=== PATIENT | female | born 1960 | race Caucasian/White ===

== ENCOUNTER 2017-11-16 14:46 | Inpatient (IN) | payer BC ==
[2017-11-16 16:12] LABS: ABSOLUTE BASOPHILS # (AUTO) 0.1 10^3/uL (0.0-0.2); ABSOLUTE EOSINOPHILS # (AUTO) 0.2 10^3/uL (0.0-0.6); ABSOLUTE LYMPHOCYTES (AUTO) 2.5 10^3/uL (0.5-4.7); ABSOLUTE MONOCYTES (AUTO) 0.5 10^3/uL (0.1-1.4); ABSOLUTE NEUT (AUTO) 7.4 10^3/uL (1.7-8.2); BASOPHILS % (AUTO) 1.1 % (0-2); EOSINOPHILS % (AUTO) 1.5 % (0-6); HEMATOCRIT 40.6 % (36.0-47.0); HEMOGLOBIN 13.7 g/dL (12.0-15.5); INTERNATIONAL RATION (INR) 0.84; LYMPHOCYTES % (AUTO) 23.6 % (13-45); MEAN CORPUSCULAR HEMOGLOBIN 28.2 pg (27.0-33.4); MEAN CORPUSCULAR HGB CONC 33.7 g/dL (32.0-36.0); MEAN CORPUSCULAR VOLUME 84 fl (80-97); MONOCYTES % (AUTO) 4.8 % (3-13); PARTIAL THROMBOPLASTIN TIME 22.4 SEC (23.5-35.8); PLATELET COUNT 409 10^3/uL (150-450); PROTHROMBIN TIME 12.1 SEC (11.4-15.4); RED BLOOD COUNT 4.86 10^6/uL (3.72-5.28); RED CELL DISTRIBUTION WIDTH 13.7 % (11.5-14.0); TOTAL CELLS COUNTED % (AUTO) 100 %; WHITE BLOOD COUNT 10.8 10^3/uL (4.0-10.5)
[2017-11-16 16:31] LABS: ALANINE AMINOTRANSFERASE 27 U/L (9-52); ALBUMIN 4.1 g/dL (3.5-5.0); ALKALINE PHOSPHATASE 128 U/L (38-126); ANION GAP 8 (5-19); ASPARTATE AMINO TRANSFERASE 12 U/L (14-36); BILIRUBIN,DIRECT 0.4 mg/dL (0.0-0.4); BILIRUBIN,TOTAL 0.4 mg/dL (0.2-1.3); BLOOD UREA NITROGEN 15 mg/dL (7-20); CALCIUM 9.9 mg/dL (8.4-10.2); CARBON DIOXIDE 29 mmol/L (22-30); CHLORIDE 103 mmol/L (98-107); CREATINE KINASE 26 U/L (30-135); GLUCOSE 234 mg/dL (75-110); POTASSIUM 4.5 mmol/L (3.6-5.0); TOTAL PROTEIN 6.6 g/dL (6.3-8.2)
--- NOTE | 2017-11-16 16:36 | RADIOLOGY REPORT (SQ) ---
EXAM DESCRIPTION: CT HEAD WITHOUT COMPLETED DATE/TIME: 11/16/2017 4:17 pm REASON FOR STUDY: INPATIENT STROKE ALERT PROTOCOL/SUSPECTED STROKE COMPARISON: None. TECHNIQUE: Axial images acquired through the brain without intravenous contrast. Images reviewed wi th bone, brain and subdural windows. Images stored on PACS. All CT scanners at this facility use dose modulation, iterative reconstruction, and/or weight based d osing when appropriate to reduce radiation dose to as low as reasonably achievable (ALARA). [facility]: Dose Right [facility]: CareDose [facility]: Dose Right [facility]: Teradose 4D [facility]: Smart [email or web address] RADIATION DOSE: CT Rad equipment meets quality standard of care and radiation dose reduction techniq ues were employed. CTDIvol: 49.0 mGy. DLP: 783 mGy-cm. mGy. LIMITATIONS: None. FINDINGS: VENTRICLES: Normal size and contour. CEREBRUM: No masses. No hemorrhage. No midline shift. No evidence for acute infarction. Normal gra y/white matter differentiation. No areas of low density in the white matter. CEREBELLUM: No masses. No hemorrhage. No alteration of density. No evidence for acute infarction. EXTRAAXIAL SPACES: No fluid collections. No masses. ORBITS AND GLOBE: No intra- or extraconal masses. Normal contour of globe without masses. CALVARIUM: No fracture. PARANASAL SINUSES: No fluid or mucosal thickening. SOFT TISSUES: No mass or hematoma. OTHER: No other significant finding. IMPRESSION: NORMAL BRAIN CT WITHOUT CONTRAST. EVIDENCE OF ACUTE STROKE: NO. COMMENT: Quality ID # [id number]: Final reports with documentation of one or more dose reduction techniques (e.g., Automated exposure control, adjustment of the mA and/or kV according to patient size, use of iterative reconstruction technique) TECHNICAL DOCUMENTATION: JOB ID: [id number] [employer]- All Rights Reserved
[2017-11-16 16:44] LABS: CREATINE KINASE MB < 0.22 ng/mL (<4.55); TROPONIN I < 0.012 ng/mL
--- NOTE | 2017-11-16 16:59 | RADIOLOGY REPORT (SQ) ---
EXAM DESCRIPTION: CHEST SINGLE VIEW COMPLETED DATE/TIME: 11/16/2017 4:40 pm REASON FOR STUDY: INPATIENT STROKE ALERT PROTOCOL/SUSPECTED STROKE COMPARISON: None. EXAM PARAMETERS: NUMBER OF VIEWS: One view. TECHNIQUE: Single frontal radiographic view of the chest acquired. RADIATION DOSE: NA LIMITATIONS: Patient body habitus. FINDINGS: LUNGS AND PLEURA: No opacities, masses or pneumothorax. No pleural effusion. MEDIASTINUM AND HILAR STRUCTURES: No masses. Contour normal. HEART AND VASCULAR STRUCTURES: Heart normal in size. Normal vasculature. BONES: No acute findings. HARDWARE: None in the chest. OTHER: No other significant finding. IMPRESSION: NO ACUTE RADIOGRAPHIC FINDING IN THE CHEST. TECHNICAL DOCUMENTATION: JOB ID: [id number] [employer]- All Rights Reserved
[2017-11-16] MEDS ORDERED: LORAZEPAM INJ 2 MG/1 ML VIAL ONE (18:35)
--- NOTE | 2017-11-16 19:39 | RADIOLOGY REPORT (SQ) ---
EXAM DESCRIPTION: MRI HEAD WITHOUT COMPLETED DATE/TIME: 11/16/2017 7:17 pm REASON FOR STUDY: TIA COMPARISON: Correlation made to CT from 11/16/2017 TECHNIQUE: Multiplanar imaging includes non-contrasted T1, T2, FLAIR, and Diffusion with ADC map seq uences. Images stored on PACS. LIMITATIONS: None. FINDINGS: ANATOMY: No anomalies. Normal vascular flow voids. Pituitary fossa normal. CSF SPACES: Normal in size and contour. No hemorrhage. CEREBRUM: A few high-signal intensity lesions scattered throughout the white matter on FLAIR imaging with distribution suggesting chronic micro-vascular ischemic change. Small amount of gliosis involvi ng the left occipital lobe seen on series 9 images 13-15 presumably sequela to prior infarction or co ntusion. Sulci and gyri normal in size and contour. No evidence of hemorrhage, mass or extraaxial f luid collection. POSTERIOR FOSSA: No signal alteration. No hemorrhage. No edema, masses or mass effect. Internal najma tory canals, cerebello-pontine angles, mastoids normal. DIFFUSION: Negative for acute or sub-acute infarction. ORBITS: No masses. Globes normal. PARANASAL SINUSES: No fluid levels. Mucosa normal. OTHER: No other significant finding. IMPRESSION: MILD SENESCENT CHANGE ABOVE WITHOUT ACUTE ISCHEMIA, HEMORRHAGE, OR MASS IS LEAD. EVIDENCE OF ACUTE STROKE: NO. TECHNICAL DOCUMENTATION: JOB ID: [id number] [employer]- All Rights Reserved
[2017-11-16] MEDS: ASPIRIN/DIPYRIDAMOLE 25-200 MG 1 CAP.SR CPMP.12HR PO SCH (20:04)
[2017-11-16] MEDS ORDERED: DEXTROSE 50%-WATER SYRINGE 12.5 GM/25 ML DOSE IV PRN (20:32)
[2017-11-16] MEDS ORDERED: DEXTROSE 50%-WATER SYRINGE 25 GM/50 ML DOSE IV PRN (20:32)
[2017-11-16] MEDS ORDERED: GLUCAGON,HUMAN RECOMB 1 MG INJ IM PRN (20:32)
[2017-11-16] MEDS ORDERED: DEXTROSE 40% GEL 15 GM TUBE X 2 PO PRN (20:32)
[2017-11-16] MEDS ORDERED: DEXTROSE 40% GEL 15 GM TUBE PO PRN (20:32)
[2017-11-16] MEDS: ATORVASTATIN CALCIUM 40 MG TABLET PO SCH (21:14)
[2017-11-16] MEDS ORDERED: METOPROLOL TARTRATE 100 MG TABLET PO ONE (21:30)
[2017-11-16] MEDS ORDERED: LOSARTAN POTASSIUM 50 MG TABLET PO ONE (21:30)
[2017-11-16] MEDS ORDERED: FOLIC ACID 1 MG TABLET PO ONE (21:30)
[2017-11-16] MEDS: INSULIN LISPRO 100 UNIT/ML 3 ML VIAL SUBCUT PRN (22:48)
[2017-11-17] MEDS: TEMAZEPAM 15 MG CAPSULE PO PRN ×2 (00:01→21:44)
[2017-11-17 00:21] LABS: CREATINE KINASE MB < 0.22 ng/mL (<4.55); TROPONIN I < 0.012 ng/mL
[2017-11-17 01:44] LABS: APPEARANCE,URINE SLIGHTLY-CLOUDY; BILIRUBIN,URINE NEGATIVE (NEGATIVE); COLOR,URINE YELLOW; GLUCOSE, URINE >=500 mg/dL (NEGATIVE); KETONES,URINE NEGATIVE (NEGATIVE); LEUKOCYTE ESTERASE,URINE NEGATIVE (NEGATIVE); NITRITE,URINE NEGATIVE (NEGATIVE); PROTEIN,URINE NEGATIVE (NEGATIVE); URINE SPECIFIC GRAVITY 1.035
[2017-11-17] MEDS: ASPIRIN/DIPYRIDAMOLE 25-200 MG 1 CAP.SR CPMP.12HR PO SCH ×2 (05:14→19:52)
[2017-11-17] MEDS: METFORMIN HCL 500 MG TABLET PO SCH ×2 (08:57→17:26)
[2017-11-17] MEDS: ONDANSETRON HCL INJ/PF 4 MG/2 ML SDV IV PRN ×2 (08:58→21:51)
--- NOTE | 2017-11-17 09:26 | EKG REPORT ---
SEVERITY:- ABNORMAL ECG - SINUS RHYTHM ABNRM R PROG, CONSIDER ASMI OR LEAD PLACEMENT BORDERLINE T WAVE ABNORMALITIES : Confirmed by: Angle Mares 17-Nov-2017 09:26:36
[2017-11-17 10:20] LABS: CREATINE KINASE MB < 0.22 ng/mL (<4.55); TROPONIN I < 0.012 ng/mL
[2017-11-17] MEDS: FOLIC ACID 1 MG TABLET PO SCH (11:11)
[2017-11-17] MEDS: LOSARTAN POTASSIUM 50 MG TABLET PO SCH (11:11)
[2017-11-17] MEDS: GLIMEPIRIDE 1 MG TABLET PO SCH (11:12)
[2017-11-17] MEDS: METOPROLOL TARTRATE 100 MG TABLET PO SCH (11:12)
[2017-11-17] MEDS: INSULIN LISPRO 100 UNIT/ML 3 ML VIAL SUBCUT PRN (14:24)
[2017-11-17] MEDS ORDERED: LORAZEPAM INJ 2 MG/1 ML VIAL IV ONE (16:04)
--- NOTE | 2017-11-17 19:47 | RADIOLOGY REPORT (SQ) ---
EXAM DESCRIPTION: MRI HEAD COMBO COMPLETED DATE/TIME: 11/17/2017 7:22 pm REASON FOR STUDY: rt side hemiplegia with slurred speech ? mass COMPARISON: 11/16/2017 TECHNIQUE: Multiplanar imaging includes noncontrasted T1, T2, FLAIR, diffusion with ADC map and post gadolinium contrast T1 sequences. Heme sensitive sequence. Images stored on PACS. CONTRAST TYPE AND DOSE: 20 mL Multihance. RENAL FUNCTION: GFR > 60. LIMITATIONS: Marked motion. FINDINGS: ANATOMY: No anomalies. Normal vascular flow voids. Pituitary fossa normal. CSF SPACES: Normal in size and contour. No hemorrhage. CEREBRUM: Sulci and gyri normal in size and contour. Normal white matter signal on FLAIR imaging. No evidence of hemorrhage, mass, or extraaxial fluid collection. No abnormal enhancement post contrast. POSTERIOR FOSSA: No signal alteration. No hemorrhage. No edema, masses, or mass effect. Internal najma tory canals, cerebellopontine angles, mastoids normal. No enhancing lesions. No abnormal enhancement post contrast. DIFFUSION IMAGING: Negative for acute or subacute infarction. ORBITS: No masses. Globes normal. PARANASAL SINUSES: No fluid levels. Mucosa normal. OTHER: No other significant finding. IMPRESSION: NORMAL MRI OF THE BRAIN WITHOUT AND WITH INTRAVENOUS GADOLINIUM CONTRAST. EVIDENCE OF ACUTE STROKE: NO. TECHNICAL DOCUMENTATION: JOB ID: [id number] [employer]- All Rights Reserved
--- NOTE | 2017-11-17 20:35 | PDOC H&P ---
History of Present Illness Admission Date/PCP: 11/16/17 14:46 TAINA HICKS MD History of Present Illness: RAMAN REID is a 57 year old female, She has history of type 2 diabetes mellitus, morbid obesity, hypertension, she came to the office very hysterical for evaluation of a new onset numbness, weakness of the right side of her body associated with slurred speech. This symptom slice syndrome was suspicious for acute CVA but the timeline of the onset of symptoms was more than 6 hours which precludes the use of TPA as an option of treatment for this patient. She was admitted from the office into the hospital for further evaluation. Initially CT head was done it was negative for any acute pathology subsequently MRI of the brain was done it was negative for an acute pathology. Patient was brought in for observation she was diagnosed as having transit ischemic attack and she was started on anti-stroke regimen. When I saw her this afternoon her speech was still slurred, MRI with contrast was then ordered and it came back as normal MRI suggesting no stroke or any intracranial pathology there is no space occupying lesion the could mimic CVA Past Medical History Cardiac Medical History: Reports: Hypertension Endocrine Medical History: Reports: Diabetes Mellitus Type 2 Social History Smoking Status: Never Smoker Frequency of Alcohol Use: Occasional Hx Recreational Drug Use: No Drugs: None Hx Prescription Drug Abuse: No Family History Family History: Reviewed & Not Pertinent Parental Family History Reviewed: Yes Children Family History Reviewed: Yes Sibling(s) Family History Reviewed.: Yes Medication/Allergy Home Medications: Aspirin [Aspirin 81 mg Chewable Tablet] 81 mg PO DAILY 11/16/17 Folic Acid [Folvite 1 mg Tablet] 1 mg PO DAILY 11/16/17 Glimepiride [Amaryl] 2 mg PO DAILY 11/16/17 Metformin HCl [Glucophage] 1,000 mg PO BID 11/16/17 Metoprolol Tartrate [Lopressor 100 mg Tablet] 100 mg PO DAILY 11/16/17 Allergies/Adverse Reactions: acetaminophen [From Percocet] Allergy (Verified 05/25/15 21:07) oxycodone HCl [From Percocet] Allergy (Verified 05/25/15 21:07) Penicillins Allergy (Verified 11/16/17 20:18) Review of Systems Constitutional: ABSENT: chills, fever(s), headache(s), weight gain, weight loss Eyes: ABSENT: visual disturbances Ears: ABSENT: hearing changes Cardiovascular: ABSENT: chest pain, dyspnea on exertion, edema, orthropnea, palpitations Respiratory: ABSENT: cough, hemoptysis Gastrointestinal: ABSENT: abdominal pain, constipation, diarrhea, hematemesis, hematochezia, nausea, vomiting Genitourinary: ABSENT: dysuria, hematuria Musculoskeletal: ABSENT: joint swelling Integumentary: ABSENT: rash, wounds Neurological: PRESENT: numbness, paresthesias Psychiatric: ABSENT: anxiety, depression, homidical ideation, suicidal ideation Endocrine: ABSENT: cold intolerance, heat intolerance, menstrual abnormalities, polydipsia, polyuria Hematologic/Lymphatic: ABSENT: easy bleeding, easy bruising, lymphadenopathy Physical Exam Vital Signs: Temp Pulse Resp BP Pulse Ox 98.5 F 75 16 172/84 H 96 11/17/17 19:48 11/17/17 19:48 11/17/17 19:48 11/17/17 19:48 11/17/17 19:48 Intake & Output 11/16/17 11/17/17 11/18/17 06:59 06:59 06:59 Intake Total 247 405 Output Total 0 Balance 247 405 Weight 110.5 kg General appearance: PRESENT: no acute distress, well-developed, well-nourished Head exam: PRESENT: atraumatic, normocephalic Eye exam: PRESENT: conjunctiva pink, EOMI, PERRLA Ear exam: PRESENT: normal external ear exam Mouth exam: PRESENT: moist, tongue midline Neck exam: PRESENT: full ROM Respiratory exam: PRESENT: clear to auscultation cortney Cardiovascular exam: PRESENT: RRR, +S1, +S2 Pulses: PRESENT: normal dorsalis pedis pul, +2 pedal pulses bilateral GI/Abdominal exam: PRESENT: normal bowel sounds, soft Rectal exam: PRESENT: deferred Neurological exam: PRESENT: alert, CN II-XII grossly intact Psychiatric exam: PRESENT: appropriate affect, normal mood Skin exam: PRESENT: dry, intact, warm Results Laboratory Results: 11/16/17 15:58 11/16/17 15:58 11/17/17 00:50 Urine Color YELLOW Urine Appearance SLIGHTLY-CLOUDY Urine pH 6.0 Ur Specific [place] 1.035 Urine Protein NEGATIVE Urine Glucose (UA) >=500 H Urine Ketones NEGATIVE Urine Blood SMALL H Urine Nitrite NEGATIVE Ur Leukocyte Esterase NEGATIVE Urine RBC (Auto) 5 11/16/17 11/16/17 11/16/17 15:58 15:58 23:46 Creatine Kinase 26 L 28 L CK-MB (CK-2) < 0.22 Troponin I < 0.012 11/16/17 11/17/17 11/17/17 23:46 09:09 09:09 Creatine Kinase 21 L CK-MB (CK-2) < 0.22 < 0.22 Troponin I < 0.012 < 0.012 Impressions: Chest X-Ray 11/16/17 00:00 IMPRESSION: NO ACUTE RADIOGRAPHIC FINDING IN THE CHEST. Head CT 11/16/17 15:41 IMPRESSION: NORMAL BRAIN CT WITHOUT CONTRAST. EVIDENCE OF ACUTE STROKE: NO. Head MRI 11/17/17 00:00 IMPRESSION: NORMAL MRI OF THE BRAIN WITHOUT AND WITH INTRAVENOUS GADOLINIUM CONTRAST. EVIDENCE OF ACUTE STROKE: NO. Assessment & Plan - Diagnosis (1) Transient ischemic attack Qualifiers: Transient cerebral ischemia type: carotid artery syndrome (hemispheric) Qualified Code(s): G45.1 - Carotid artery syndrome (hemispheric) Is this a current diagnosis for this admission?: Yes Plan: This symptom is consistent with TIA, these symptoms seems to resolve in 24 hours (2) Type 2 diabetes mellitus Qualifiers: Diabetes mellitus complication status: with neurologic complications Diabetes mellitus complication detail: with polyneuropathy Diabetes mellitus fdc insulin use: without termite control technician use Qualified Code(s): E11.42 - Type 2 diabetes mellitus with diabetic polyneuropathy Is this a current diagnosis for this admission?: Yes
[2017-11-17 21:25] LABS: URINE BARBITURATES SCREEN NEGATIVE; URINE BENZODIAZEPINES SCREEN NEGATIVE; URINE COCAINE SCREEN NEGATIVE; URINE MARIJUANA (THC) SCREEN NEGATIVE; URINE METHADONE SCREEN NEGATIVE; URINE PHENCYCLIDINE SCREEN NEGATIVE
[2017-11-17] MEDS: ATORVASTATIN CALCIUM 40 MG TABLET PO SCH (21:43)
[2017-11-17 21:53] LABS: URINE AMPHETAMINES SCREEN NEGATIVE
[2017-11-17] MEDS ORDERED: ENOXAPARIN SODIUM INJ 40 MG/0.4 ML DISP.SYRIN SUBCUT ONE (22:00)
[2017-11-18] MEDS: NAPROXEN 250 MG TABLET PO PRN ×3 (02:28→23:05)
[2017-11-18] MEDS: ASPIRIN/DIPYRIDAMOLE 25-200 MG 1 CAP.SR CPMP.12HR PO SCH ×2 (06:48→18:26)
[2017-11-18] MEDS: ONDANSETRON HCL INJ/PF 4 MG/2 ML SDV IV PRN ×4 (06:52→22:19)
[2017-11-18] MEDS: INSULIN LISPRO 100 UNIT/ML 3 ML VIAL SUBCUT PRN ×3 (11:09→22:13)
[2017-11-18] MEDS: ENOXAPARIN SODIUM INJ 40 MG/0.4 ML DISP.SYRIN SUBCUT SCH (11:11)
[2017-11-18] MEDS: LOSARTAN POTASSIUM 50 MG TABLET PO SCH (11:12)
[2017-11-18] MEDS: GLIMEPIRIDE 1 MG TABLET PO SCH (11:12)
[2017-11-18] MEDS: METOPROLOL TARTRATE 100 MG TABLET PO SCH (11:12)
[2017-11-18] MEDS: FOLIC ACID 1 MG TABLET PO SCH (11:13)
--- NOTE | 2017-11-18 17:53 | PDOC PROGRESS REPORT ---
Subjective Progress Note for:: 11/18/17 Subjective:: Patient continues to manifest symptoms of slow speech, right-sided weakness, despite negative MRI brain with and without contrast. She also complained of a headache, this raises the question of possible seizure, possible hemiplegic migrainous headache. EEG will be ordered Reason For Visit: TIA Physical Exam Vital Signs: Temp Pulse Resp BP Pulse Ox 98.3 F 100 18 147/62 H 96 11/18/17 08:27 11/18/17 12:00 11/18/17 12:00 11/18/17 12:00 11/18/17 12:00 Intake & Output 11/17/17 11/18/17 11/19/17 06:59 06:59 06:59 Intake Total 247 672 Output Total 0 Balance 247 672 Weight 110.5 kg 107.3 kg General appearance: PRESENT: no acute distress Eye exam: PRESENT: PERRLA Respiratory exam: PRESENT: clear to auscultation cortney Cardiovascular exam: PRESENT: +S1, +S2 Neurological exam: PRESENT: alert, motor sensory deficit Results Laboratory Results: 11/16/17 15:58 11/16/17 15:58 11/16/17 11/16/17 11/16/17 15:58 15:58 23:46 Creatine Kinase 26 L 28 L CK-MB (CK-2) < 0.22 Troponin I < 0.012 11/16/17 11/17/17 11/17/17 23:46 09:09 09:09 Creatine Kinase 21 L CK-MB (CK-2) < 0.22 < 0.22 Troponin I < 0.012 < 0.012 Impressions: Chest X-Ray 11/16/17 00:00 IMPRESSION: NO ACUTE RADIOGRAPHIC FINDING IN THE CHEST. Head CT 11/16/17 15:41 IMPRESSION: NORMAL BRAIN CT WITHOUT CONTRAST. EVIDENCE OF ACUTE STROKE: NO. Head MRI 11/17/17 00:00 IMPRESSION: NORMAL MRI OF THE BRAIN WITHOUT AND WITH INTRAVENOUS GADOLINIUM CONTRAST. EVIDENCE OF ACUTE STROKE: NO. Assessment & Plan - Diagnosis (1) Transient ischemic attack Qualifiers: Transient cerebral ischemia type: carotid artery syndrome (hemispheric) Qualified Code(s): G45.1 - Carotid artery syndrome (hemispheric) Is this a current diagnosis for this admission?: Yes (2) Type 2 diabetes mellitus Qualifiers: Diabetes mellitus complication status: with neurologic complications Diabetes mellitus complication detail: with polyneuropathy Diabetes mellitus intermediate card tender insulin use: without intermediate card tender use Qualified Code(s): E11.42 - Type 2 diabetes mellitus with diabetic polyneuropathy Is this a current diagnosis for this admission?: Yes (3) Hemiparesis Is this a current diagnosis for this admission?: Yes Plan: Differential diagnosis includes migrainous headache, seizure disorder
--- NOTE | 2017-11-18 18:17 | XCELERA REPORT ---
[address] [address] Transthoracic Echocardiogram Report Name: RAMAN REID Age: 57 yrs Gender: Female : 1960 Patient Status: Inpatient Patient Location: [address] [place] [address] Study Date: 11/18/2017 01:53 PM Height: 61 in Weight: 243 lb BSA: 2.1 m2 Procedure: A complete two-dimensional transthoracic echocardiogram was performed (2D, M-mode, spectral and color flow Doppler). The study was technically difficult with many images being suboptimal in quality. Reason For Study: tia Ordering Physician: TAINA HICKS Performed By: Sahara Watson Interpretation Summary The left ventricular ejection fraction is normal. There is borderline concentric left ventricular hypertrophy. Doppler measurements suggest pseudonormalized left ventricular relaxation, which is associated with grade II/IV or mild to moderate diastolic dysfunction The left ventricle is grossly normal size. Wall motion cannot be accurately commented on, but no definite regional wall motion abnormalities noted. The right ventricular systolic function is normal. The left atrial size is normal. The right atrium is normal in size There is a trace amount of mitral regurgitation There is no mitral valve stenosis. No aortic regurgitation is present. There is no aortic valve stenosis There is a trace or physiologic amount of tricuspid regurgitation Tricuspid regurgitation jet envelope not well defined to measure RV systolic pressure accurately. The aortic root is not well visualized but is probably normal size. The inferior vena cava was not well visualized There is no pericardial effusion. MMode/2D Measurements & Calculations RVDd: 2.6 cm LVIDd: 3.6 cm FS: 36.0 % Ao root diam: 2.9 cm IVSd: 0.99 cm LVIDs: 2.3 cm EDV(Teich): 55.5 ml LVPWd: 0.90 cm ESV(Teich): 18.6 ml Ao root area: 6.6 cm2 EF(Teich): 66.5 % LA dimension: 2.8 cm Doppler Measurements & Calculations MV E max madelin: MV P1/2t max madelin: Ao V2 max: LV V1 max P.4 cm/sec 121.9 cm/sec 116.3 cm/sec 4.5 mmHg MV A max madelin: MV P1/2t: 51.6 msec Ao max PG: LV V1 max: 101.2 cm/sec 5.4 mmHg 105.6 cm/sec MV E/A: 1.2 MVA(P1/2t): 4.3 cm2 MV dec slope: 692.3 cm/sec2 MV dec time: 0.15 sec PA V2 max: TR max madelin: 69.1 cm/sec 228.0 cm/sec PA max PG: TR max P.8 mmHg 1.9 mmHg Left Ventricle The left ventricle is grossly normal size. There is borderline concentric left ventricular hypertrophy. The left ventricular ejection fraction is normal. Doppler measurements suggest pseudonormalized left ventricular relaxation, which is associated with grade II/IV or mild to moderate diastolic dysfunction. Wall motion cannot be accurately commented on, but no definite regional wall motion abnormalities noted. Right Ventricle The right ventricle is mildly dilated. There is normal right ventricular wall thickness. The right ventricular systolic function is normal. Atria The right atrium is normal in size. The left atrial size is normal. Interarterial septum not well visualized and not well dopplered. Cannot comment on ASD/PFO presence. Mitral Valve The mitral valve is grossly normal. There is no mitral valve stenosis. There is a trace amount of mitral regurgitation. Aortic Valve The aortic valve is grossly normal. There is no aortic valve stenosis. No aortic regurgitation is present. Tricuspid Valve The tricuspid valve is not well visualized, but is grossly normal. There is no tricuspid stenosis. There is a trace or physiologic amount of tricuspid regurgitation. Tricuspid regurgitation jet envelope not well defined to measure RV systolic pressure accurately. Pulmonic Valve The pulmonic valve is not well visualized. Great Vessels The aortic root is not well visualized but is probably normal size. The inferior vena cava was not well visualized. Effusions There is no pericardial effusion. : TAINA HICKS > Angle Mares
[2017-11-18] MEDS: ATORVASTATIN CALCIUM 40 MG TABLET PO SCH (22:13)
[2017-11-18] MEDS: TEMAZEPAM 15 MG CAPSULE PO PRN (22:13)
[2017-11-19] MEDS: ASPIRIN/DIPYRIDAMOLE 25-200 MG 1 CAP.SR CPMP.12HR PO SCH ×2 (05:23→19:03)
[2017-11-19] MEDS: ONDANSETRON HCL INJ/PF 4 MG/2 ML SDV IV PRN ×2 (05:57→11:23)
[2017-11-19] MEDS: INSULIN LISPRO 100 UNIT/ML 3 ML VIAL SUBCUT PRN ×2 (10:49→19:03)
[2017-11-19] MEDS: LOSARTAN POTASSIUM 50 MG TABLET PO SCH (10:49)
[2017-11-19] MEDS: METOPROLOL TARTRATE 100 MG TABLET PO SCH (10:50)
[2017-11-19] MEDS: FOLIC ACID 1 MG TABLET PO SCH (10:51)
[2017-11-19] MEDS: GLIMEPIRIDE 1 MG TABLET PO SCH (10:51)
[2017-11-19] MEDS: ENOXAPARIN SODIUM INJ 40 MG/0.4 ML DISP.SYRIN SUBCUT SCH (10:51)
[2017-11-19] MEDS: NAPROXEN 250 MG TABLET PO PRN (14:53)
[2017-11-19] MEDS: METFORMIN HCL 500 MG TABLET PO SCH (15:46)
--- NOTE | 2017-11-19 16:57 | RADIOLOGY REPORT (SQ) ---
EXAM DESCRIPTION: CAROTID DOPPLER COMPLETED DATE/TIME: 11/19/2017 4:43 pm REASON FOR STUDY: tia COMPARISON: None. TECHNIQUE: Grayscale ultrasound, Doppler velocity and spectra, and color Doppler images acquired of the extra-cranial carotid and vertebral arteries. Images stored on PACS. LIMITATIONS: None. FINDINGS: RIGHT CAROTID CCA Velocities: Within normal limits. ICA Velocities Peak systolic 1.23 m/s. End diastolic 0.43 m/s. Proximal ICA/CCA peak systolic ratio 1.1. Spectra normal. No significant plaque. LEFT CAROTID CCA Velocities: Within normal limits. ICA Velocities Peak systolic 1.22 m/s. End diastolic 0.40 m/s. Proximal ICA/CCA peak systolic ratio 1.6. Spectra normal. No significant plaque. VERTEBRAL ARTERIES: Antegrade flow. Normal waveforms. SUBCLAVIAN ARTERIES: No finding. OTHER: No other significant finding. IMPRESSION: No hemodynamically significant stenoses are identified. COMMENT: Quality ID #[id number]: Velocity criteria are extrapolated from the diameter data as defined by t he Society of Radiologists in Ultrasound Consensus Conference. Radiology 2003: 229; 340-346. TECHNICAL DOCUMENTATION: JOB ID: [id number] [employer]- All Rights Reserved
[2017-11-19] MEDS ORDERED: LORAZEPAM INJ 2 MG/1 ML VIAL ONE (19:27)
--- NOTE | 2017-11-19 21:04 | RADIOLOGY REPORT (SQ) ---
EXAM DESCRIPTION: MRI CERVICAL SPINE WITHOUT COMPLETED DATE/TIME: 11/19/2017 8:38 pm REASON FOR STUDY: cervical radiculopathy COMPARISON: None. TECHNIQUE: Sagittal and Axial imaging includes T1, T2, STIR and gradient echo sequences. LIMITATIONS: None. FINDINGS: ALIGNMENT: Normal. VERTEBRAE: Intact. BONE MARROW: Normal. No marrow replacement or reactive changes. DISCS: Normal. No significant abnormal signal or loss of height. HARDWARE: None in the spine. CORD AND BASE OF BRAIN: Normal in size and signal intensity. SOFT TISSUES: No soft tissue masses. C1-C2: No significant spinal stenosis. C2-C3: No significant spinal stenosis or exit foraminal stenosis. C3-C4: No significant spinal stenosis or exit foraminal stenosis. C4-C5: No significant spinal stenosis or exit foraminal stenosis. C5-C6: No significant spinal stenosis or exit foraminal stenosis. C6-C7: No significant spinal stenosis or exit foraminal stenosis. C7-T1: No significant spinal stenosis or exit foraminal stenosis. UPPER THORACIC: Incompletely imaged. No significant spinal stenosis or exit foraminal stenosis. OTHER: No other significant finding. IMPRESSION: Age-appropriate exam. No significant stenosis or disc disease. TECHNICAL DOCUMENTATION: JOB ID: [id number] [place]-72 2010 [employer]- All Rights Reserved
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
[2017-11-19] MEDS: TEMAZEPAM 15 MG CAPSULE PO PRN (22:00)
[2017-11-19] MEDS: ATORVASTATIN CALCIUM 40 MG TABLET PO SCH (22:00)
[2017-11-20] MEDS: INSULIN LISPRO 100 UNIT/ML 3 ML VIAL SUBCUT PRN ×2 (04:19→13:12)
[2017-11-20] MEDS: NAPROXEN 250 MG TABLET PO PRN ×3 (04:22→22:48)
[2017-11-20] MEDS: ASPIRIN/DIPYRIDAMOLE 25-200 MG 1 CAP.SR CPMP.12HR PO SCH ×2 (06:23→17:34)
--- NOTE | 2017-11-20 09:02 | EEG PRO FEE REPORT ---
EEG INTERPRETATION PATIENT NAME: RAMAN REID ROOM#: [id number] ORDER#: [id number] DATE OF STUDY: 11/19/2017 : 1960 REFERRING MD: TAINA HICKS M.D. DIAGNOSIS: Seizures REPORT This a 57 year old female referred for EEG who has a lot of pain constant leg movement. The EEG does show a lot of movement artifact but no definite seizure activity is identified during the video portions of that were reviewed. The background is a regular 8-10 Hz low to medium voltage alpha throughout with no focal slowing, amplitude asymmetry or epileptiform discharges. FINAL IMPRESSION: Normal EEG INTERPRETING PHYSICIAN: LEENA LING M.D. /: MTEFFT TT: 0855 ID: [id number] /: [id number] TD: 1542 JOB: [id number] cc:Von BRYANT M.D. >
[2017-11-20] MEDS: GLIMEPIRIDE 1 MG TABLET PO SCH (11:27)
[2017-11-20] MEDS: METOPROLOL TARTRATE 100 MG TABLET PO SCH (11:29)
[2017-11-20] MEDS: FOLIC ACID 1 MG TABLET PO SCH (11:29)
[2017-11-20] MEDS: LOSARTAN POTASSIUM 50 MG TABLET PO SCH (11:30)
[2017-11-20 11:36] LABS: ABSOLUTE EOSINOPHILS # (AUTO) 0.1 10^3/uL (0.0-0.6); ABSOLUTE MONOCYTES (AUTO) 0.4 10^3/uL (0.1-1.4); ABSOLUTE NEUT (AUTO) 6.6 10^3/uL (1.7-8.2); BASOPHILS % (AUTO) 0.5 % (0-2); EOSINOPHILS % (AUTO) 0.7 % (0-6); HEMATOCRIT 40.3 % (36.0-47.0); HEMOGLOBIN 13.5 g/dL (12.0-15.5); LYMPHOCYTES % (AUTO) 12.7 % (13-45); MEAN CORPUSCULAR HGB CONC 33.5 g/dL (32.0-36.0); MEAN CORPUSCULAR VOLUME 84 fl (80-97); MONOCYTES % (AUTO) 4.9 % (3-13); PLATELET COUNT 302 10^3/uL (150-450); RED BLOOD COUNT 4.82 10^6/uL (3.72-5.28); RED CELL DISTRIBUTION WIDTH 13.8 % (11.5-14.0); SEGMENTED NEUTROPHILS % (AUTO) 81.2 % (42-78); TOTAL CELLS COUNTED % (AUTO) 100 %; WHITE BLOOD COUNT 8.2 10^3/uL (4.0-10.5)
[2017-11-20] MEDS: METFORMIN HCL 500 MG TABLET PO SCH ×2 (11:38→16:49)
[2017-11-20] MEDS: ONDANSETRON HCL INJ/PF 4 MG/2 ML SDV IV PRN ×2 (11:44→16:48)
[2017-11-20 11:51] LABS: ANION GAP 15 (5-19); BLOOD UREA NITROGEN 21 mg/dL (7-20); CALCIUM 9.9 mg/dL (8.4-10.2); CARBON DIOXIDE 23 mmol/L (22-30); CHLORIDE 105 mmol/L (98-107); GLUCOSE 319 mg/dL (75-110); POTASSIUM 4.3 mmol/L (3.6-5.0); SODIUM 142.6 mmol/L (137-145)
[2017-11-20] MEDS: ENOXAPARIN SODIUM INJ 40 MG/0.4 ML DISP.SYRIN SUBCUT SCH (12:53)
--- NOTE | 2017-11-20 20:34 | PDOC PROGRESS REPORT ---
Subjective Progress Note for:: 11/20/17 Subjective:: She was seen by the bedside, she has clinical stroke with right-sided weakness but there is no objective structural CVA from the MRI. I called and I spoke to the neurologist at [facility] with the intent to transfer patient to the facility, the neurologist is of opinion That it is not uncommon to have an acute stroke with a negative MRI findings and that they would not be doing anything differently from what is being offered to the patient presently, he recommended that patient should undergo rehabilitation and physical therapy Reason For Visit: TIA,CVA Physical Exam Vital Signs: Temp Pulse Resp BP Pulse Ox 97.3 F 78 16 147/62 H 97 11/20/17 15:25 11/20/17 15:25 11/20/17 15:25 11/20/17 15:25 11/20/17 15:25 Intake & Output 11/19/17 11/20/17 11/21/17 06:59 06:59 06:59 Intake Total 607 507 200 Balance 607 507 200 Weight 107.3 kg 106.7 kg General appearance: PRESENT: no acute distress Head exam: PRESENT: atraumatic, normocephalic Eye exam: ABSENT: scleral icterus Neck exam: PRESENT: full ROM Respiratory exam: PRESENT: clear to auscultation cortney Cardiovascular exam: PRESENT: RRR, +S1, +S2 Vascular exam: PRESENT: normal capillary refill GI/Abdominal exam: PRESENT: normal bowel sounds, soft Rectal exam: PRESENT: deferred Neurological exam: PRESENT: alert, motor sensory deficit - Right sided hemiparesis Psychiatric exam: PRESENT: appropriate affect, normal mood Skin exam: PRESENT: dry, intact, warm Results Laboratory Results: 11/20/17 11:07 11/20/17 11:07 11/20/17 11/20/17 11:07 11:07 WBC 8.2 RBC 4.82 Hgb 13.5 Hct 40.3 MCV 84 MCH 28.0 MCHC 33.5 RDW 13.8 Plt Count 302 Seg Neutrophils % 81.2 H Lymphocytes % 12.7 L Monocytes % 4.9 Eosinophils % 0.7 Basophils % 0.5 Absolute Neutrophils 6.6 Absolute Lymphocytes 1.0 Absolute Monocytes 0.4 Absolute Eosinophils 0.1 Absolute Basophils 0.0 Sodium 142.6 Potassium 4.3 Chloride 105 Carbon Dioxide 23 Anion Gap 15 BUN 21 H Creatinine 0.52 Est GFR ( Amer) > 60 Est GFR (Non-Af Amer) > 60 Glucose 319 H Calcium 9.9 11/16/17 11/16/17 11/16/17 15:58 15:58 23:46 Creatine Kinase 26 L 28 L CK-MB (CK-2) < 0.22 Troponin I < 0.012 11/16/17 11/17/17 11/17/17 23:46 09:09 09:09 Creatine Kinase 21 L CK-MB (CK-2) < 0.22 < 0.22 Troponin I < 0.012 < 0.012 Impressions: Chest X-Ray 11/16/17 00:00 IMPRESSION: NO ACUTE RADIOGRAPHIC FINDING IN THE CHEST. Head CT 11/16/17 15:41 IMPRESSION: NORMAL BRAIN CT WITHOUT CONTRAST. EVIDENCE OF ACUTE STROKE: NO. Head MRI 11/17/17 00:00 IMPRESSION: NORMAL MRI OF THE BRAIN WITHOUT AND WITH INTRAVENOUS GADOLINIUM CONTRAST. EVIDENCE OF ACUTE STROKE: NO. Carotid Doppler Study 11/19/17 00:00 IMPRESSION: No hemodynamically significant stenoses are identified. Cervical Spine MRI 11/19/17 00:00 IMPRESSION: Age-appropriate exam. No significant stenosis or disc disease. Assessment & Plan - Diagnosis (1) Type 2 diabetes mellitus Qualifiers: Diabetes mellitus complication status: with neurologic complications Diabetes mellitus complication detail: with polyneuropathy Diabetes mellitus roasterman insulin use: without roasterman use Qualified Code(s): E11.42 - Type 2 diabetes mellitus with diabetic polyneuropathy Is this a current diagnosis for this admission?: Yes (2) Hemiparesis Qualifiers: Hemiparesis etiology: unspecified Hemiparesis laterality: right dominant side Qualified Code(s): G81.91 - Hemiplegia, unspecified affecting right dominant side Is this a current diagnosis for this admission?: Yes (3) Cerebrovascular accident Qualifiers: CVA mechanism: unspecified Qualified Code(s): I63.9 - Cerebral infarction, unspecified Is this a current diagnosis for this admission?: Yes Plan: She has clinical stroke continue management to be transcribed to [facility]
[2017-11-20] MEDS: TEMAZEPAM 15 MG CAPSULE PO PRN (21:02)
[2017-11-20] MEDS: ATORVASTATIN CALCIUM 40 MG TABLET PO SCH (21:02)
[2017-11-21] MEDS: ASPIRIN/DIPYRIDAMOLE 25-200 MG 1 CAP.SR CPMP.12HR PO SCH ×2 (06:44→18:14)
[2017-11-21] MEDS: ONDANSETRON HCL INJ/PF 4 MG/2 ML SDV IV PRN ×4 (07:23→22:36)
[2017-11-21] MEDS: METFORMIN HCL 500 MG TABLET PO SCH ×2 (08:18→16:08)
[2017-11-21] MEDS: INSULIN LISPRO 100 UNIT/ML 3 ML VIAL SUBCUT PRN ×4 (08:18→22:36)
[2017-11-21] MEDS: FOLIC ACID 1 MG TABLET PO SCH (11:08)
[2017-11-21] MEDS: GLIMEPIRIDE 1 MG TABLET PO SCH (11:08)
[2017-11-21] MEDS: METOPROLOL TARTRATE 100 MG TABLET PO SCH (11:08)
[2017-11-21] MEDS: LOSARTAN POTASSIUM 50 MG TABLET PO SCH (11:08)
[2017-11-21] MEDS: ENOXAPARIN SODIUM INJ 40 MG/0.4 ML DISP.SYRIN SUBCUT SCH (11:08)
[2017-11-21] MEDS: NAPROXEN 250 MG TABLET PO PRN (11:38)
--- NOTE | 2017-11-21 15:26 | PDOC PROGRESS REPORT ---
Subjective Progress Note for:: 11/21/17 Subjective:: Patient reported some improvement in her speech but right sided weakness persist. Requesting for cough medication and pain medication is ineffective. She reported multiple joints aches and pain. No chest pain, difficulty with breathing, fever or chills. No nausea or vomiting. No headache or dizziness. Reason For Visit: TIA,CVA Physical Exam Vital Signs: Temp Pulse Resp BP Pulse Ox 98.1 F 79 15 148/69 H 99 11/21/17 11:55 11/21/17 11:55 11/21/17 11:55 11/21/17 11:55 11/21/17 11:55 Intake & Output 11/20/17 11/21/17 11/22/17 06:59 06:59 06:59 Intake Total 507 387 150 Balance 507 387 150 Weight 106.7 kg 107.6 kg General appearance: PRESENT: no acute distress, morbidly obese Head exam: PRESENT: atraumatic, normocephalic Eye exam: PRESENT: conjunctiva pink, EOMI, PERRLA. ABSENT: scleral icterus Mouth exam: PRESENT: moist Respiratory exam: PRESENT: clear to auscultation cortney Cardiovascular exam: PRESENT: RRR. ABSENT: diastolic murmur, rubs, systolic murmur GI/Abdominal exam: PRESENT: normal bowel sounds, soft. ABSENT: distended, guarding, mass, organolmegaly, rebound, tenderness Extremities exam: PRESENT: tenderness - expressed multiple joints involvement. ABSENT: pedal edema Musculoskeletal exam: PRESENT: normal inspection Neurological exam: PRESENT: alert, awake, oriented to person, oriented to place , oriented to time, oriented to situation, abnormal gait - right hemiparesis, other - right sided hemiparesis. ABSENT: normal gait Psychiatric exam: PRESENT: appropriate affect, normal mood. ABSENT: homicidal ideation, suicidal ideation Skin exam: PRESENT: dry, intact, warm. ABSENT: cyanosis, rash Results Laboratory Results: 11/20/17 11:07 11/20/17 11:07 11/16/17 11/16/17 11/16/17 15:58 15:58 23:46 Creatine Kinase 26 L 28 L CK-MB (CK-2) < 0.22 Troponin I < 0.012 11/16/17 11/17/17 11/17/17 23:46 09:09 09:09 Creatine Kinase 21 L CK-MB (CK-2) < 0.22 < 0.22 Troponin I < 0.012 < 0.012 Impressions: Chest X-Ray 11/16/17 00:00 IMPRESSION: NO ACUTE RADIOGRAPHIC FINDING IN THE CHEST. Head CT 11/16/17 15:41 IMPRESSION: NORMAL BRAIN CT WITHOUT CONTRAST. EVIDENCE OF ACUTE STROKE: NO. Head MRI 11/17/17 00:00 IMPRESSION: NORMAL MRI OF THE BRAIN WITHOUT AND WITH INTRAVENOUS GADOLINIUM CONTRAST. EVIDENCE OF ACUTE STROKE: NO. Carotid Doppler Study 11/19/17 00:00 IMPRESSION: No hemodynamically significant stenoses are identified. Cervical Spine MRI 11/19/17 00:00 IMPRESSION: Age-appropriate exam. No significant stenosis or disc disease. Assessment & Plan - Diagnosis (1) Cerebrovascular accident Qualifiers: CVA mechanism: unspecified Qualified Code(s): I63.9 - Cerebral infarction, unspecified Is this a current diagnosis for this admission?: Yes Plan: See covering attending physician orders. (2) Hemiparesis Qualifiers: Hemiparesis etiology: unspecified Hemiparesis laterality: right dominant side Qualified Code(s): G81.91 - Hemiplegia, unspecified affecting right dominant side Is this a current diagnosis for this admission?: Yes Plan: See covering attending physician orders. (3) Type 2 diabetes mellitus Qualifiers: Diabetes mellitus complication status: with neurologic complications Diabetes mellitus complication detail: with polyneuropathy Diabetes mellitus alf insulin use: without alf use Qualified Code(s): E11.42 - Type 2 diabetes mellitus with diabetic polyneuropathy Is this a current diagnosis for this admission?: Yes Plan: See covering attending physician orders. (4) Cough in adult patient Is this a current diagnosis for this admission?: Yes Plan: See covering attending physician orders. (5) Multiple joint pain Is this a current diagnosis for this admission?: Yes Plan: See covering attending physician orders. (6) Morbid obesity with BMI of 40.0-44.9, adult Is this a current diagnosis for this admission?: Yes Plan: See covering attending physician orders. - Time Time Spent with patient: 25-34 minutes Medications reviewed and adjusted accordingly: Yes Anticipated discharge: Home with Homehealth - Inpatient Certification Based on my medical assessment, after consideration of the patient's comorbidities, presenting symptoms, or acuity I expect that the services needed warrant INPATIENT care.: Yes I certify that my determination is in accordance with my understanding of Medicare's requirements for reasonable and necessary INPATIENT services [42 CFR 412.3e].: Yes Medical Necessity: Need Close Monitoring Due to Risk of Patient Decompensation, Need For Continuous Telemetry Monitoring, Risk of Complication if Not Cared For in Hospital 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
[2017-11-21] MEDS: TRAMADOL HCL 50 MG TABLET PO PRN (16:08)
[2017-11-21] MEDS: GUAIFENESIN SYRP 200 MG/10 ML UDC PO PRN (16:09)
[2017-11-21] MEDS: ATORVASTATIN CALCIUM 40 MG TABLET PO SCH (22:36)
[2017-11-21] MEDS: TEMAZEPAM 15 MG CAPSULE PO PRN (22:40)
[2017-11-22] MEDS: TRAMADOL HCL 50 MG TABLET PO PRN ×2 (04:32→13:25)
[2017-11-22] MEDS: ONDANSETRON HCL INJ/PF 4 MG/2 ML SDV IV PRN ×5 (04:32→22:04)
[2017-11-22] MEDS: ASPIRIN/DIPYRIDAMOLE 25-200 MG 1 CAP.SR CPMP.12HR PO SCH ×2 (06:13→18:04)
[2017-11-22 06:55] LABS: CHOLESTEROL 138.23 mg/dL (0-200); TRIGLYCERIDES 241 mg/dL (<150)
[2017-11-22 07:05] LABS: DIRECT LDL 77 mg/dL (<100)
[2017-11-22 07:12] LABS: VLDL CHOLESTEROL 48.2 mg/dL (10-31)
[2017-11-22] MEDS: METFORMIN HCL 500 MG TABLET PO SCH ×2 (07:46→17:00)
[2017-11-22] MEDS: GUAIFENESIN SYRP 200 MG/10 ML UDC PO PRN (11:57)
[2017-11-22] MEDS: INSULIN LISPRO 100 UNIT/ML 3 ML VIAL SUBCUT PRN ×3 (13:19→22:51)
[2017-11-22] MEDS: ENOXAPARIN SODIUM INJ 40 MG/0.4 ML DISP.SYRIN SUBCUT SCH (13:19)
[2017-11-22] MEDS: LOSARTAN POTASSIUM 50 MG TABLET PO SCH (13:21)
[2017-11-22] MEDS: METOPROLOL TARTRATE 100 MG TABLET PO SCH (13:22)
[2017-11-22] MEDS: FOLIC ACID 1 MG TABLET PO SCH (13:23)
[2017-11-22] MEDS: GLIMEPIRIDE 1 MG TABLET PO SCH (13:23)
--- NOTE | 2017-11-22 14:19 | PDOC PROGRESS REPORT ---
Subjective Progress Note for:: 11/22/17 Subjective:: Patient reported no chest pain or difficulty with breathing. No fever or chills. Patient reported nausea, constipation and poor po intake. No vomiting or abdominal pain. No headache or dizziness. Reason For Visit: TIA,CVA Physical Exam Vital Signs: Temp Pulse Resp BP Pulse Ox 97.7 F 78 12 141/61 H 95 11/22/17 11:25 11/22/17 11:25 11/22/17 11:25 11/22/17 11:25 11/22/17 11:25 Intake & Output 11/21/17 11/22/17 11/23/17 06:59 06:59 06:59 Intake Total 387 1013 250 Balance 387 1013 250 Weight 107.6 kg 107.2 kg Physical Exam: General appearance: PRESENT: no acute distress, morbidly obese Head exam: PRESENT: atraumatic, normocephalic Eye exam: PRESENT: conjunctiva pink, EOMI, PERRLA. ABSENT: scleral icterus Mouth exam: PRESENT: moist Respiratory exam: PRESENT: clear to auscultation cortney Cardiovascular exam: PRESENT: RRR. ABSENT: diastolic murmur, rubs, systolic murmur GI/Abdominal exam: PRESENT: normal bowel sounds, soft. ABSENT: distended, guarding, mass, organomegaly, rebound, tenderness Extremities exam: PRESENT: tenderness - expressed multiple joints involvement. ABSENT: pedal edema Musculoskeletal exam: PRESENT: normal inspection Neurological exam: PRESENT: alert, awake, oriented to person, oriented to place , oriented to time, oriented to situation, abnormal gait - right hemiparesis, other - right sided hemiparesis. ABSENT: normal gait Psychiatric exam: PRESENT: appropriate affect, normal mood. ABSENT: homicidal ideation, suicidal ideation Skin exam: PRESENT: dry, intact, warm. ABSENT: cyanosis, rash Results Laboratory Results: 11/20/17 11:07 11/20/17 11:07 11/22/17 05:31 Triglycerides 241 H Cholesterol 138.23 LDL Cholesterol Direct 77 VLDL Cholesterol 48.2 H HDL Cholesterol 29 L 11/16/17 11/16/17 11/16/17 15:58 15:58 23:46 Creatine Kinase 26 L 28 L CK-MB (CK-2) < 0.22 Troponin I < 0.012 11/16/17 11/17/17 11/17/17 23:46 09:09 09:09 Creatine Kinase 21 L CK-MB (CK-2) < 0.22 < 0.22 Troponin I < 0.012 < 0.012 Impressions: Chest X-Ray 11/16/17 00:00 IMPRESSION: NO ACUTE RADIOGRAPHIC FINDING IN THE CHEST. Head CT 11/16/17 15:41 IMPRESSION: NORMAL BRAIN CT WITHOUT CONTRAST. EVIDENCE OF ACUTE STROKE: NO. Head MRI 11/17/17 00:00 IMPRESSION: NORMAL MRI OF THE BRAIN WITHOUT AND WITH INTRAVENOUS GADOLINIUM CONTRAST. EVIDENCE OF ACUTE STROKE: NO. Carotid Doppler Study 11/19/17 00:00 IMPRESSION: No hemodynamically significant stenoses are identified. Cervical Spine MRI 11/19/17 00:00 IMPRESSION: Age-appropriate exam. No significant stenosis or disc disease. Assessment & Plan - Diagnosis (1) Cerebrovascular accident Qualifiers: CVA mechanism: unspecified Qualified Code(s): I63.9 - Cerebral infarction, unspecified Is this a current diagnosis for this admission?: Yes (2) Hemiparesis Qualifiers: Hemiparesis etiology: unspecified Hemiparesis laterality: right dominant side Qualified Code(s): G81.91 - Hemiplegia, unspecified affecting right dominant side Is this a current diagnosis for this admission?: Yes (3) Type 2 diabetes mellitus Qualifiers: Diabetes mellitus complication status: with neurologic complications Diabetes mellitus complication detail: with polyneuropathy Diabetes mellitus terminal worker insulin use: without terminal worker use Qualified Code(s): E11.42 - Type 2 diabetes mellitus with diabetic polyneuropathy Is this a current diagnosis for this admission?: Yes (4) Cough in adult patient Is this a current diagnosis for this admission?: Yes (5) Multiple joint pain Is this a current diagnosis for this admission?: Yes (6) Morbid obesity with BMI of 40.0-44.9, adult Is this a current diagnosis for this admission?: Yes (7) Nausea Is this a current diagnosis for this admission?: Yes Plan: See covering attending physician orders. (8) Constipation Qualifiers: Constipation type: unspecified constipation type Qualified Code(s): K59.00 - Constipation, unspecified Is this a current diagnosis for this admission?: Yes Plan: See covering attending physician orders. - Time Time Spent with patient: 25-34 minutes Medications reviewed and adjusted accordingly: Yes Anticipated discharge: SNF Within: Other - Inpatient Certification Based on my medical assessment, after consideration of the patient's comorbidities, presenting symptoms, or acuity I expect that the services needed warrant INPATIENT care.: Yes I certify that my determination is in accordance with my understanding of Medicare's requirements for reasonable and necessary INPATIENT services [42 CFR 412.3e].: Yes Medical Necessity: Need Close Monitoring Due to Risk of Patient Decompensation, Need For Continuous Telemetry Monitoring, Risk of Complication if Not Cared For in Hospital Post Hospital Care: D/C or Transfer Summary - Plan Summary Plan Summary: Continue all current medication management.
[2017-11-22] MEDS ORDERED: BISACODYL 10 MG SUPP.RECT PR ONE (15:00)
--- NOTE | 2017-11-22 15:38 | RADIOLOGY REPORT (SQ) ---
EXAM DESCRIPTION: KUB/ABDOMEN (SINGLE VIEW) COMPLETED DATE/TIME: 11/22/2017 3:03 pm REASON FOR STUDY: Constipation, Nausea COMPARISON: None. NUMBER OF VIEWS: One view. TECHNIQUE: Supine radiographic image of the abdomen acquired. LIMITATIONS: None. FINDINGS: BOWEL GAS PATTERN: Normal bowel gas pattern. No dilated loops. CONSTIPATION: mild CALCIFICATIONS: No suspicious calcifications. SOFT TISSUES: No gross mass or suggestion of organomegaly. HARDWARE: None in the abdomen. BONES: No acute fracture. No worrisome bone lesions. OTHER: No other significant finding. IMPRESSION: NO RADIOGRAPHIC EVIDENCE FOR ACUTE ABDOMINAL DISEASE. Mild constipation. TECHNICAL DOCUMENTATION: JOB ID: [id number] 2010 [employer]- All Rights Reserved
[2017-11-22] MEDS: ATORVASTATIN CALCIUM 40 MG TABLET PO SCH (22:04)
[2017-11-22] MEDS: TEMAZEPAM 15 MG CAPSULE PO PRN (22:04)
[2017-11-23] MEDS: ONDANSETRON HCL INJ/PF 4 MG/2 ML SDV IV PRN ×5 (02:43→22:25)
[2017-11-23] MEDS: TRAMADOL HCL 50 MG TABLET PO PRN ×3 (04:14→22:23)
[2017-11-23] MEDS: ASPIRIN/DIPYRIDAMOLE 25-200 MG 1 CAP.SR CPMP.12HR PO SCH ×2 (06:51→18:25)
[2017-11-23] MEDS: METFORMIN HCL 500 MG TABLET PO SCH ×2 (08:59→16:26)
[2017-11-23] MEDS: METOPROLOL TARTRATE 100 MG TABLET PO SCH (09:25)
[2017-11-23] MEDS: GLIMEPIRIDE 1 MG TABLET PO SCH (09:26)
[2017-11-23] MEDS: LOSARTAN POTASSIUM 50 MG TABLET PO SCH (09:26)
[2017-11-23] MEDS: FOLIC ACID 1 MG TABLET PO SCH (09:26)
[2017-11-23] MEDS: ENOXAPARIN SODIUM INJ 40 MG/0.4 ML DISP.SYRIN SUBCUT SCH (09:28)
[2017-11-23] MEDS: INSULIN LISPRO 100 UNIT/ML 3 ML VIAL SUBCUT PRN ×2 (13:19→22:28)
--- NOTE | 2017-11-23 20:54 | PDOC PROGRESS REPORT ---
Subjective Progress Note for:: 11/23/17 Subjective:: She was seen by the bedside, she has CVA with right-sided weakness, she was able to walk with physical therapy today. Discharge planning is making arrangement for patient to be transferred to inpatient rehabilitation Reason For Visit: TIA,CVA Physical Exam Vital Signs: Temp Pulse Resp BP Pulse Ox 98.1 F 71 17 112/43 L 98 11/23/17 17:35 11/23/17 19:00 11/23/17 17:35 11/23/17 17:35 11/23/17 17:35 Intake & Output 11/22/17 11/23/17 11/24/17 06:59 06:59 06:59 Intake Total 1013 1365 520 Balance 1013 1365 520 Weight 107.2 kg 107.2 kg General appearance: PRESENT: no acute distress Eye exam: PRESENT: PERRLA Respiratory exam: PRESENT: clear to auscultation cortney Cardiovascular exam: PRESENT: +S1, +S2 GI/Abdominal exam: PRESENT: soft Neurological exam: PRESENT: alert, motor sensory deficit - Right sided tia- paresis/hemiplegia Results Laboratory Results: 11/20/17 11:07 11/20/17 11:07 11/16/17 11/16/17 11/16/17 15:58 15:58 23:46 Creatine Kinase 26 L 28 L CK-MB (CK-2) < 0.22 Troponin I < 0.012 11/16/17 11/17/17 11/17/17 23:46 09:09 09:09 Creatine Kinase 21 L CK-MB (CK-2) < 0.22 < 0.22 Troponin I < 0.012 < 0.012 Impressions: Chest X-Ray 11/16/17 00:00 IMPRESSION: NO ACUTE RADIOGRAPHIC FINDING IN THE CHEST. Head CT 11/16/17 15:41 IMPRESSION: NORMAL BRAIN CT WITHOUT CONTRAST. EVIDENCE OF ACUTE STROKE: NO. Head MRI 11/17/17 00:00 IMPRESSION: NORMAL MRI OF THE BRAIN WITHOUT AND WITH INTRAVENOUS GADOLINIUM CONTRAST. EVIDENCE OF ACUTE STROKE: NO. Carotid Doppler Study 11/19/17 00:00 IMPRESSION: No hemodynamically significant stenoses are identified. Cervical Spine MRI 11/19/17 00:00 IMPRESSION: Age-appropriate exam. No significant stenosis or disc disease. KUB X-Ray 11/22/17 00:00 IMPRESSION: NO RADIOGRAPHIC EVIDENCE FOR ACUTE ABDOMINAL DISEASE. Mild constipation. Assessment & Plan - Diagnosis (1) Type 2 diabetes mellitus Qualifiers: Diabetes mellitus complication status: with neurologic complications Diabetes mellitus complication detail: with polyneuropathy Diabetes mellitus terminal operations supervisor insulin use: without longterm use Qualified Code(s): E11.42 - Type 2 diabetes mellitus with diabetic polyneuropathy Is this a current diagnosis for this admission?: Yes (2) Hemiparesis Qualifiers: Hemiparesis etiology: unspecified Hemiparesis laterality: right dominant side Qualified Code(s): G81.91 - Hemiplegia, unspecified affecting right dominant side Is this a current diagnosis for this admission?: Yes (3) Cerebrovascular accident Qualifiers: CVA mechanism: unspecified Qualified Code(s): I63.9 - Cerebral infarction, unspecified Is this a current diagnosis for this admission?: Yes - Plan Summary Plan Summary: Continue treatment
[2017-11-23] MEDS: TEMAZEPAM 15 MG CAPSULE PO PRN (22:24)
[2017-11-23] MEDS: ATORVASTATIN CALCIUM 40 MG TABLET PO SCH (22:24)
[2017-11-24] MEDS: ONDANSETRON HCL INJ/PF 4 MG/2 ML SDV IV PRN ×4 (04:56→18:37)
[2017-11-24] MEDS: ASPIRIN/DIPYRIDAMOLE 25-200 MG 1 CAP.SR CPMP.12HR PO SCH ×2 (05:06→18:36)
[2017-11-24] MEDS: METFORMIN HCL 500 MG TABLET PO SCH ×2 (08:14→16:14)
[2017-11-24] MEDS: TRAMADOL HCL 50 MG TABLET PO PRN ×2 (08:19→21:55)
[2017-11-24] MEDS: FOLIC ACID 1 MG TABLET PO SCH (10:18)
[2017-11-24] MEDS: METOPROLOL TARTRATE 100 MG TABLET PO SCH (10:18)
[2017-11-24] MEDS: GLIMEPIRIDE 1 MG TABLET PO SCH (10:18)
[2017-11-24] MEDS: LOSARTAN POTASSIUM 50 MG TABLET PO SCH (10:18)
[2017-11-24] MEDS: ENOXAPARIN SODIUM INJ 40 MG/0.4 ML DISP.SYRIN SUBCUT SCH (10:21)
[2017-11-24] MEDS: INSULIN LISPRO 100 UNIT/ML 3 ML VIAL SUBCUT PRN ×2 (13:04→21:56)
[2017-11-24] MEDS: ATORVASTATIN CALCIUM 40 MG TABLET PO SCH (21:54)
[2017-11-24] MEDS: MECLIZINE HCL 25 MG TABLET PO PRN (21:54)
[2017-11-24] MEDS: TEMAZEPAM 15 MG CAPSULE PO PRN (21:54)
--- NOTE | 2017-11-24 22:34 | PDOC PROGRESS REPORT ---
Subjective Progress Note for:: 11/24/17 Subjective:: She was seen by the bedside, she has CVA with right-sided paralysis, it was recommended that she goes to acute inpatient rehab, with him for [facility] to approve the physical therapy so that she can be transferred to inpatient rehab. She complained of dizziness, a sense of spinning of the environment, vertigo she also complained of nausea Reason For Visit: TIA,CVA Physical Exam Vital Signs: Temp Pulse Resp BP Pulse Ox 98.0 F 69 16 131/71 H 95 11/24/17 15:39 11/24/17 15:39 11/24/17 15:39 11/24/17 15:39 11/24/17 15:39 Intake & Output 11/23/17 11/24/17 11/25/17 06:59 06:59 06:59 Intake Total 3755 934 0553 Balance 3317 954 2066 Weight 107.2 kg 102.5 kg General appearance: PRESENT: no acute distress Eye exam: PRESENT: PERRLA Respiratory exam: PRESENT: clear to auscultation cortney Cardiovascular exam: PRESENT: +S1, +S2 GI/Abdominal exam: PRESENT: soft Neurological exam: PRESENT: alert, CN II-XII grossly intact Results Laboratory Results: 11/20/17 11:07 11/20/17 11:07 11/16/17 11/16/17 11/16/17 15:58 15:58 23:46 Creatine Kinase 26 L 28 L CK-MB (CK-2) < 0.22 Troponin I < 0.012 11/16/17 11/17/17 11/17/17 23:46 09:09 09:09 Creatine Kinase 21 L CK-MB (CK-2) < 0.22 < 0.22 Troponin I < 0.012 < 0.012 Impressions: Chest X-Ray 11/16/17 00:00 IMPRESSION: NO ACUTE RADIOGRAPHIC FINDING IN THE CHEST. Head CT 11/16/17 15:41 IMPRESSION: NORMAL BRAIN CT WITHOUT CONTRAST. EVIDENCE OF ACUTE STROKE: NO. Head MRI 11/17/17 00:00 IMPRESSION: NORMAL MRI OF THE BRAIN WITHOUT AND WITH INTRAVENOUS GADOLINIUM CONTRAST. EVIDENCE OF ACUTE STROKE: NO. Carotid Doppler Study 11/19/17 00:00 IMPRESSION: No hemodynamically significant stenoses are identified. Cervical Spine MRI 11/19/17 00:00 IMPRESSION: Age-appropriate exam. No significant stenosis or disc disease. KUB X-Ray 11/22/17 00:00 IMPRESSION: NO RADIOGRAPHIC EVIDENCE FOR ACUTE ABDOMINAL DISEASE. Mild constipation. Assessment & Plan - Diagnosis (1) Type 2 diabetes mellitus Qualifiers: Diabetes mellitus complication status: with neurologic complications Diabetes mellitus complication detail: with polyneuropathy Diabetes mellitus intermediate teacher insulin use: without senior care use Qualified Code(s): E11.42 - Type 2 diabetes mellitus with diabetic polyneuropathy Is this a current diagnosis for this admission?: Yes (2) Hemiparesis Qualifiers: Hemiparesis etiology: unspecified Hemiparesis laterality: right dominant side Qualified Code(s): G81.91 - Hemiplegia, unspecified affecting right dominant side Is this a current diagnosis for this admission?: Yes (3) Cerebrovascular accident Qualifiers: CVA mechanism: unspecified Qualified Code(s): I63.9 - Cerebral infarction, unspecified Is this a current diagnosis for this admission?: Yes
[2017-11-25] MEDS: ONDANSETRON HCL INJ/PF 4 MG/2 ML SDV IV PRN ×3 (02:50→20:00)
[2017-11-25] MEDS: MECLIZINE HCL 25 MG TABLET PO PRN (05:59)
[2017-11-25] MEDS: ASPIRIN/DIPYRIDAMOLE 25-200 MG 1 CAP.SR CPMP.12HR PO SCH ×2 (06:00→17:10)
[2017-11-25] MEDS: TRAMADOL HCL 50 MG TABLET PO PRN (06:00)
[2017-11-25] MEDS: METFORMIN HCL 500 MG TABLET PO SCH ×2 (08:22→17:07)
[2017-11-25] MEDS ORDERED: LORAZEPAM INJ 2 MG/1 ML VIAL IV ONE (08:30)
--- NOTE | 2017-11-25 10:24 | RADIOLOGY REPORT (SQ) ---
EXAM DESCRIPTION: MRI HEAD WITHOUT COMPLETED DATE/TIME: 11/25/2017 9:52 am REASON FOR STUDY: post stroke re-evaluation COMPARISON: MRI cervical spine 11/19/2017 MRI brain 11/17/2017, 11/16/2017 CT brain 11/16/2017 TECHNIQUE: Multiplanar imaging includes non-contrasted T1, T2, FLAIR, and diffusion with ADC map seq uences. Images stored on PACS. LIMITATIONS: None. FINDINGS: ANATOMY: No congenital anomalies. Pituitary fossa normal. CSF SPACES: Normal in size and contour. No hemorrhage. CEREBRUM: Sulci and gyri normal in size and contour. Normal white matter signal on FLAIR imaging. No evidence of hemorrhage, mass, or extraaxial fluid collection. POSTERIOR FOSSA: A moderate-sized nonhemorrhagic early subacute infarct is present in the leftward blount lf of the dilcia, seen as abnormal diffusion signal, decreased T1 and increased FLAIR/T2 signal on axia l image 7-9. There is spotty subacute nonhemorrhagic ischemic change in the rightward dilcia, best shown on diffusio n weighted image 9. Abnormal flow signal is present in the left distal intracranial vertebral artery, which could indicat e thrombosis or dissection. DIFFUSION IMAGING: Positive as above ORBITS: No masses. Globes normal. PARANASAL SINUSES: No fluid levels. Mucosa normal. OTHER: No other significant finding. IMPRESSION: Early subacute nonhemorrhagic pontine infarcts left more extensive than right Abnormal flow signal in the distal left intracranial vertebral artery from clot or dissection EVIDENCE OF ACUTE STROKE: NO. TECHNICAL DOCUMENTATION: JOB ID: [id number]- All Rights Reserved
[2017-11-25] MEDS: METOPROLOL TARTRATE 100 MG TABLET PO SCH (11:40)
[2017-11-25] MEDS: GLIMEPIRIDE 1 MG TABLET PO SCH (11:40)
[2017-11-25] MEDS: LOSARTAN POTASSIUM 50 MG TABLET PO SCH (11:41)
[2017-11-25] MEDS: FOLIC ACID 1 MG TABLET PO SCH (11:42)
[2017-11-25 12:13] LABS: ABSOLUTE BASOPHILS # (AUTO) 0.1 10^3/uL (0.0-0.2); ABSOLUTE EOSINOPHILS # (AUTO) 0.2 10^3/uL (0.0-0.6); ABSOLUTE LYMPHOCYTES (AUTO) 1.9 10^3/uL (0.5-4.7); ABSOLUTE MONOCYTES (AUTO) 0.5 10^3/uL (0.1-1.4); ABSOLUTE NEUT (AUTO) 7.6 10^3/uL (1.7-8.2); BASOPHILS % (AUTO) 0.5 % (0-2); EOSINOPHILS % (AUTO) 1.8 % (0-6); HEMATOCRIT 38.5 % (36.0-47.0); HEMOGLOBIN 13.1 g/dL (12.0-15.5); LYMPHOCYTES % (AUTO) 18.9 % (13-45); MEAN CORPUSCULAR HEMOGLOBIN 28.3 pg (27.0-33.4); MEAN CORPUSCULAR HGB CONC 33.9 g/dL (32.0-36.0); MEAN CORPUSCULAR VOLUME 83 fl (80-97); MONOCYTES % (AUTO) 5.2 % (3-13); PLATELET COUNT 343 10^3/uL (150-450); RED BLOOD COUNT 4.62 10^6/uL (3.72-5.28); RED CELL DISTRIBUTION WIDTH 13.8 % (11.5-14.0); SEGMENTED NEUTROPHILS % (AUTO) 73.6 % (42-78); TOTAL CELLS COUNTED % (AUTO) 100 %; WHITE BLOOD COUNT 10.3 10^3/uL (4.0-10.5)
[2017-11-25 12:46] LABS: ANION GAP 10 (5-19); BLOOD UREA NITROGEN 29 mg/dL (7-20); CARBON DIOXIDE 25 mmol/L (22-30); CHLORIDE 105 mmol/L (98-107); GLUCOSE 138 mg/dL (75-110); POTASSIUM 3.9 mmol/L (3.6-5.0); SODIUM 140.3 mmol/L (137-145)
--- NOTE | 2017-11-25 15:54 | PDOC PROGRESS REPORT ---
Subjective Progress Note for:: 11/25/17 Subjective:: Patient was seen by the bedside, MRI head without contrast was done today, it showed a moderate size nonhemorrhagic early subacute infarct in the left half of the dilcia. Patient needs to go to rehab I spoke to [facility] physician and she is in agreement that patient needed to go to rehab, the plan is to get a transfer tomorrow morning to rehabilitation. Reason For Visit: TIA,CVA Physical Exam Vital Signs: Temp Pulse Resp BP Pulse Ox 97.6 F 83 16 125/51 L 96 11/25/17 11:30 11/25/17 14:00 11/25/17 11:30 11/25/17 11:30 11/25/17 11:30 Intake & Output 11/24/17 11/25/17 11/26/17 06:59 06:59 06:59 Intake Total 524 1649 Balance 524 1649 Weight 102.5 kg 104.6 kg General appearance: PRESENT: no acute distress Eye exam: PRESENT: PERRLA Respiratory exam: PRESENT: clear to auscultation cortney GI/Abdominal exam: PRESENT: soft Neurological exam: PRESENT: alert Results Laboratory Results: 11/25/17 11:56 11/25/17 11:56 11/25/17 11/25/17 11:56 11:56 WBC 10.3 RBC 4.62 Hgb 13.1 Hct 38.5 MCV 83 MCH 28.3 MCHC 33.9 RDW 13.8 Plt Count 343 Seg Neutrophils % 73.6 Lymphocytes % 18.9 Monocytes % 5.2 Eosinophils % 1.8 Basophils % 0.5 Absolute Neutrophils 7.6 Absolute Lymphocytes 1.9 Absolute Monocytes 0.5 Absolute Eosinophils 0.2 Absolute Basophils 0.1 Sodium 140.3 Potassium 3.9 Chloride 105 Carbon Dioxide 25 Anion Gap 10 BUN 29 H Creatinine 0.66 Est GFR ( Amer) > 60 Est GFR (Non-Af Amer) > 60 Glucose 138 H Calcium 9.0 11/16/17 11/16/17 11/16/17 15:58 15:58 23:46 Creatine Kinase 26 L 28 L CK-MB (CK-2) < 0.22 Troponin I < 0.012 11/16/17 11/17/17 11/17/17 23:46 09:09 09:09 Creatine Kinase 21 L CK-MB (CK-2) < 0.22 < 0.22 Troponin I < 0.012 < 0.012 Impressions: Chest X-Ray 11/16/17 00:00 IMPRESSION: NO ACUTE RADIOGRAPHIC FINDING IN THE CHEST. Head CT 11/16/17 15:41 IMPRESSION: NORMAL BRAIN CT WITHOUT CONTRAST. EVIDENCE OF ACUTE STROKE: NO. Carotid Doppler Study 11/19/17 00:00 IMPRESSION: No hemodynamically significant stenoses are identified. Cervical Spine MRI 11/19/17 00:00 IMPRESSION: Age-appropriate exam. No significant stenosis or disc disease. KUB X-Ray 11/22/17 00:00 IMPRESSION: NO RADIOGRAPHIC EVIDENCE FOR ACUTE ABDOMINAL DISEASE. Mild constipation. Head MRI 11/25/17 07:00 IMPRESSION: Early subacute nonhemorrhagic pontine infarcts left more extensive than right Abnormal flow signal in the distal left intracranial vertebral artery from clot or dissection EVIDENCE OF ACUTE STROKE: NO. Assessment & Plan - Diagnosis (1) Type 2 diabetes mellitus Qualifiers: Diabetes mellitus complication status: with neurologic complications Diabetes mellitus complication detail: with polyneuropathy Diabetes mellitus intermediate frame tender insulin use: without intermediate frame tender use Qualified Code(s): E11.42 - Type 2 diabetes mellitus with diabetic polyneuropathy Is this a current diagnosis for this admission?: Yes (2) Hemiparesis Qualifiers: Hemiparesis etiology: unspecified Hemiparesis laterality: right dominant side Qualified Code(s): G81.91 - Hemiplegia, unspecified affecting right dominant side Is this a current diagnosis for this admission?: Yes (3) Cerebrovascular accident Qualifiers: CVA mechanism: unspecified Qualified Code(s): I63.9 - Cerebral infarction, unspecified Is this a current diagnosis for this admission?: Yes (4) Thrombosis of left vertebral artery Is this a current diagnosis for this admission?: Yes (5) Left pontine CVA Is this a current diagnosis for this admission?: Yes
--- NOTE | 2017-11-25 16:05 | PDOC TRANSFER SUMMARY ---
General Admission Date/PCP: 11/16/17 14:46 TAINA HICKS MD Admission Date: 11/16/17 Transfer Date: 11/26/17 Accepting Facility: [facility] Resuscitation Status: Full Code - Transfer Diagnosis (1) Left pontine CVA Is this a current diagnosis for this admission?: Yes (2) Thrombosis of left vertebral artery Is this a current diagnosis for this admission?: Yes (3) Type 2 diabetes mellitus Is this a current diagnosis for this admission?: Yes (4) Hemiparesis Is this a current diagnosis for this admission?: Yes (5) Cerebrovascular accident Is this a current diagnosis for this admission?: Yes - Transfer Medications Home Medications: Aspirin [Aspirin 81 mg Chewable Tablet] 81 mg PO DAILY 11/16/17 Folic Acid [Folvite 1 mg Tablet] 1 mg PO DAILY 11/16/17 Glimepiride [Amaryl] 2 mg PO DAILY 11/16/17 Metformin HCl [Glucophage] 1,000 mg PO BID 11/16/17 Metoprolol Tartrate [Lopressor 100 mg Tablet] 100 mg PO DAILY 11/16/17 Transfer Medications: Current Medications Atorvastatin Calcium (Lipitor 40 Mg Tablet) 40 mg PO QHS EFREM Stop: 12/16/17 21:59 Last Admin: 11/24/17 21:54 Dose: 40 mg Dextrose (Dextrose Inj 50% Syringe (25 Gm/50 Ml)) 12.5 gm IV PRN PRN; Protocol PRN Reason: FOR BG 50-69 IN ALERT PATIENT Stop: 12/16/17 20:31 Dextrose (Dextrose Inj 50% Syringe (25 Gm/50 Ml)) 25 gm IV PRN PRN PRN Reason: Protocol Stop: 12/16/17 20:31 Dipyridamole/Aspirin (Aggrenox 25 Mg/200 Mg Capsule Sa) 1 cap.sr PO Q12A EFREM Stop: 12/16/17 17:59 Last Admin: 11/25/17 06:00 Dose: 1 cap.sr Enoxaparin Sodium (Lovenox Inj 40 Mg/0.4 Ml Disp.Syrin) 40 mg SUBCUT DAILY EFREM Stop: 12/18/17 09:59 Last Admin: 11/24/17 10:21 Dose: 40 mg Folic Acid (Folvite 1 Mg Tablet) 1 mg PO DAILY EFREM Stop: 12/17/17 09:59 Last Admin: 11/25/17 11:42 Dose: 1 mg Glimepiride (Amaryl 1 Mg Tablet) 2 mg PO DAILY EFREM Stop: 12/17/17 09:59 Last Admin: 11/25/17 11:40 Dose: 2 mg Glucagon (Glucagen Inj 1 Mg Vial) 1 mg IM PRN PRN; Protocol PRN Reason: EVALUATE FOR BG < 70 Stop: 12/16/17 20:31 Glucose (Glutose 40% Gel 15 Gm Tube) 15 gm PO PRN PRN; Protocol PRN Reason: FOR BG 50-69 IN ALERT PATIENT Stop: 12/16/17 20:31 Glucose (Glutose 40% Gel 15 Gm Tube) 30 gm PO PRN PRN; Protocol PRN Reason: FOR BG < 50 IN ALERT PATIENT Stop: 12/16/17 20:31 Guaifenesin (Robitussin Syrup 200 Mg/10 Ml Ud Cup) 200 mg PO QIDP PRN PRN Reason: COUGH Stop: 12/21/17 15:13 Last Admin: 11/22/17 11:57 Dose: 200 mg Insulin Human Lispro (Humalog Insulin 100 Unit/1 Ml 3 Ml Vial) 0 - 12 unit SUBCUT ACHSP PRN PRN Reason: Protocol Stop: 12/16/17 20:31 Last Admin: 11/24/17 21:56 Dose: 2 unit Losartan Potassium (Cozaar 50 Mg Tablet) 100 mg PO DAILY EFREM Stop: 12/17/17 09:59 Last Admin: 11/25/17 11:41 Dose: 100 mg Meclizine HCl (Antivert 25 Mg Tablet) 25 mg PO Q6HP PRN PRN Reason: DIZZINESS/NAUSEA Stop: 12/24/17 19:29 Last Admin: 11/25/17 05:59 Dose: 25 mg Metformin HCl (Glucophage 500 Mg Tablet) 1,000 mg PO BIDACBS EFREM Stop: 12/19/17 15:59 Last Admin: 11/25/17 08:22 Dose: 1,000 mg Metoprolol Tartrate (Lopressor 100 Mg Tablet) 100 mg PO DAILY EFREM Stop: 12/17/17 09:59 Last Admin: 11/25/17 11:40 Dose: 100 mg Ondansetron HCl (Zofran Inj/Pf 4 Mg/2 Ml Sdv) 4 mg IV Q4HP PRN PRN Reason: NAUSEA Stop: 12/17/17 08:40 Last Admin: 11/25/17 08:22 Dose: 4 mg Sodium Chloride (Saline Flush 2.5 Ml Monoject Prefil Syrin) 2.5 ml IV Q8 EFREM Stop: 12/17/17 21:59 Last Admin: 11/25/17 06:00 Dose: 2.5 ml Temazepam (Restoril 15 Mg Capsule) 15 mg PO HSP PRN PRN Reason: INSOMNIA Stop: 11/29/17 19:04 Last Admin: 11/24/17 21:54 Dose: 15 mg Tramadol HCl (Ultram 50 Mg Tablet) 50 mg PO Q8HP PRN Stop: 11/28/17 15:13 Last Admin: 11/25/17 06:00 Dose: 50 mg - Allergies Allergies/Adverse Reactions: acetaminophen [From Percocet] Allergy (Verified 05/25/15 21:07) oxycodone HCl [From Percocet] Allergy (Verified 05/25/15 21:07) Penicillins Allergy (Verified 11/16/17 20:18) Hospital Course Hospital Course: Patient 57-year-old female with history of type 2 diabetes mellitus, morbid obesity, poor compliance to medical therapy she presented to the office on November 16, 2017 very hysterical for evaluation of new onset numbness, right- sided weakness, the onset of symptoms was outside the 6 hour window,That would indicate TPA administration, CVA was suspected she was admitted directly from the office to the hospital for evaluation CT head was done initially it was negative for an acute pathology subsequent MRI brain was done, it was also negative for acute pathology. She has clinical stroke with right-sided paralysis. 48 hours into admission MRI of the brain with contrast was done again it was negative for any acute pathology there was no demonstrable objective structural lesion to explain the clinical stroke that was obvious in this patient. MRI of the neck was done that was normal, I spoke to [facility] neurologist , he was in agreement with the treatment plan which included statin therapy, antiplatelet therapy with Aggrenox, carotid Doppler was done 2D echo on negative he said it is not uncommon for MRI to be negative in early stroke and he suggested that we could repeat in 7 days. MRI of the brain was done today and it showed a moderate-sized nonhemorrhagic early subacute infarct in the left toward of of the dilcia. There is spotty subacute nonhemorrhagic ischemic change in the rightward dilcia also found was abnormal flow signal in the left distal intracranial vertebral artery which could represent thrombosis. She was seen by physical therapy, she underwent some therapy session in the hospital I spoke to [facility] physician, she is approved for physical therapy at [facility]. Physical Exam Vital Signs: Temp Pulse Resp BP Pulse Ox 97.6 F 83 16 125/51 L 96 11/25/17 11:30 11/25/17 14:00 11/25/17 11:30 11/25/17 11:30 11/25/17 11:30 Intake & Output 11/24/17 11/25/17 11/26/17 06:59 06:59 06:59 Intake Total 524 1649 Balance 524 1649 Weight 102.5 kg 104.6 kg General appearance: PRESENT: no acute distress Head exam: PRESENT: atraumatic, normocephalic Eye exam: PRESENT: PERRLA Ear exam: PRESENT: normal external ear exam Mouth exam: PRESENT: moist, tongue midline Respiratory exam: PRESENT: clear to auscultation cortney Cardiovascular exam: PRESENT: RRR Vascular exam: PRESENT: normal capillary refill GI/Abdominal exam: PRESENT: normal bowel sounds, soft Rectal exam: PRESENT: deferred Extremities exam: PRESENT: full ROM Neurological exam: PRESENT: alert Psychiatric exam: PRESENT: appropriate affect, normal mood Skin exam: PRESENT: dry, intact, warm Results Laboratory Results: 11/25/17 11:56 11/25/17 11:56 11/25/17 11/25/17 11:56 11:56 WBC 10.3 RBC 4.62 Hgb 13.1 Hct 38.5 MCV 83 MCH 28.3 MCHC 33.9 RDW 13.8 Plt Count 343 Seg Neutrophils % 73.6 Lymphocytes % 18.9 Monocytes % 5.2 Eosinophils % 1.8 Basophils % 0.5 Absolute Neutrophils 7.6 Absolute Lymphocytes 1.9 Absolute Monocytes 0.5 Absolute Eosinophils 0.2 Absolute Basophils 0.1 Sodium 140.3 Potassium 3.9 Chloride 105 Carbon Dioxide 25 Anion Gap 10 BUN 29 H Creatinine 0.66 Est GFR ( Amer) > 60 Est GFR (Non-Af Amer) > 60 Glucose 138 H Calcium 9.0 11/16/17 11/16/17 11/16/17 15:58 15:58 23:46 Creatine Kinase 26 L 28 L CK-MB (CK-2) < 0.22 Troponin I < 0.012 11/16/17 11/17/17 11/17/17 23:46 09:09 09:09 Creatine Kinase 21 L CK-MB (CK-2) < 0.22 < 0.22 Troponin I < 0.012 < 0.012 Impressions: Chest X-Ray 11/16/17 00:00 IMPRESSION: NO ACUTE RADIOGRAPHIC FINDING IN THE CHEST. Head CT 11/16/17 15:41 IMPRESSION: NORMAL BRAIN CT WITHOUT CONTRAST. EVIDENCE OF ACUTE STROKE: NO. Carotid Doppler Study 11/19/17 00:00 IMPRESSION: No hemodynamically significant stenoses are identified. Cervical Spine MRI 11/19/17 00:00 IMPRESSION: Age-appropriate exam. No significant stenosis or disc disease. KUB X-Ray 11/22/17 00:00 IMPRESSION: NO RADIOGRAPHIC EVIDENCE FOR ACUTE ABDOMINAL DISEASE. Mild constipation. Head MRI 11/25/17 07:00 IMPRESSION: Early subacute nonhemorrhagic pontine infarcts left more extensive than right Abnormal flow signal in the distal left intracranial vertebral artery from clot or dissection EVIDENCE OF ACUTE STROKE: NO.
[2017-11-25] MEDS: ENOXAPARIN SODIUM INJ 40 MG/0.4 ML DISP.SYRIN SUBCUT SCH (17:07)
[2017-11-25] MEDS: ATORVASTATIN CALCIUM 40 MG TABLET PO SCH (22:16)
[2017-11-25] MEDS: TEMAZEPAM 15 MG CAPSULE PO PRN (23:03)
[2017-11-26] MEDS: ONDANSETRON HCL INJ/PF 4 MG/2 ML SDV IV PRN (03:42)
[2017-11-26] MEDS: ASPIRIN/DIPYRIDAMOLE 25-200 MG 1 CAP.SR CPMP.12HR PO SCH (06:49)
[2017-11-26 09:08] VITALS: BP 145/60
[2017-11-26] MEDS: LOSARTAN POTASSIUM 50 MG TABLET PO SCH (09:23)
[2017-11-26] MEDS: GLIMEPIRIDE 1 MG TABLET PO SCH (09:24)
[2017-11-26] MEDS: METOPROLOL TARTRATE 100 MG TABLET PO SCH (09:24)
[2017-11-26] MEDS: FOLIC ACID 1 MG TABLET PO SCH (09:24)
[2017-11-26] MEDS: ENOXAPARIN SODIUM INJ 40 MG/0.4 ML DISP.SYRIN SUBCUT SCH (09:25)
[2017-11-26] MEDS: METFORMIN HCL 500 MG TABLET PO SCH (09:25)
== END 2017-11-26 10:13 | disposition short-term general hospital (02) | DRG 65 ==
LOC: 3S 14:46 → OBSVTOIN 14:46 → INTOOBSV 14:46 → 3S 11-18 14:31
PROVIDERS: ADMIT Internal Medicine; ATTEND Internal Medicine
DX: I61.3 Nontraumatic intracerebral hemorrhage in brain stem (principal); Z68.41 Body mass index [BMI] 40.0-44.9, adult; G81.91 Hemiplegia, unspecified affecting right dominant side; G45.1 Carotid artery syndrome (hemispheric); I65.02 Occlusion and stenosis of left vertebral artery; E66.01 Morbid (severe) obesity due to excess calories; E11.42 Type 2 diabetes mellitus with diabetic polyneuropathy; R47.81 Slurred speech; I10 Essential (primary) hypertension; K59.00 Constipation, unspecified; Z79.899 Other long term (current) drug therapy; Z88.6 Allergy status to analgesic agent; Z88.0 Allergy status to penicillin; Z91.19 Patient's noncompliance with other medical treatment and regimen; Z79.82 Long term (current) use of aspirin
CPT/HCPCS: 36415; 70450; 70551; 70553; 71045; 72141; 74018; 80048; 80053; 80061; 80307; 81001; 82550; 82553; 82962; 83036; 84484; 85025; 85610; 85730; 93005; 93010; 93306; 93880; 95819; J1650; J1815; J2060; J2405; J3490

== ENCOUNTER 2020-03-29 07:06 | Day surgery (SDC) | payer MEDICAID ==
[~2020-03-29 07:06] MED LIST: KETOROLAC TROMETHAMINE 0.45% 4 DROP/0.4 ML DROPERETTE OS PRN
[2020-03-29] MEDS ORDERED: CHONDR SU A NA/HYALUR INTRAOC KIT (SURGICARE) ONE (07:20)
[2020-03-29] MEDS ORDERED: LIDOCAINE 1%/PHENYLEPHRINE 1.5% 1 ML VIAL ONE (07:20)
[2020-03-29] MEDS ORDERED: EPINEPHRINE INJ/PF 1 MG/1 ML AMPULE ONE (07:20)
[2020-03-29] MEDS: CYCLOPENTOLATE 0.2%/PHENYLEPHRINE 1% OPH SOLN 2 ML OS PRN ×3 (07:48→08:08)
[2020-03-29] MEDS: TROPICAMIDE 1% OPH SOLN 15 ML OS PRN ×3 (07:48→08:08)
[2020-03-29] MEDS: BESIFLOXACIN HCL 0.6% OPH SUSP 5 ML BOTTLE OS PRN ×4 (07:48→08:41)
[2020-03-29] MEDS: TETRACAINE HCL 0.5% OPH SOLN 4 ML OS PRN ×3 (07:49→08:18)
[2020-03-29] MEDS ORDERED: MIDAZOLAM 2 MG/2 ML INJ ONE (08:00)
[2020-03-29] MEDS: DORZOLAMIDE HCL 2%/TIMOLOL MALEAT 0.5% OPH SOLN 10 ML OS PRN ×2 (08:41)
--- NOTE | 2020-03-29 13:06 | Operative Report ---
Operative Report-[facility] Operative Report: DATE OF SURGERY: 03/29/20 PREOPERATIVE DIAGNOSIS: Cataracts, left eye POSTOPERATIVE DIAGNOSIS: Cataract, left eye OPERATION: Cataract extraction with insertion of an IOL of the left eye. Intraocular Lens Model: [22.5 sn60wf] She underwent surgery for difficulty reading up close SURGEON: Bam Abdi MD ANESTHESIA: Topical PROCEDURE: After obtaining appropriate consent, the patient's left eye was prepped and draped in a sterile fashion as well as the surgeon in the sterile manner and cataract surgery was started. First a paracentesis blade was used to make a side-port incision. Viscoelastic was used to inflate the anterior chamber. Next a 2.4 mm incision was made with a 2.4 mm blade, clear corneal temporarily. A continuous capsulorrhexis was made using a cystotome and Utrata forceps. Following this hydrodissection was carried out to make the lens fully loose and mobile and it was rotated 90 degrees. Following this, a divide and conquer technique was used to phacoemulsify the lens. The remaining cortex was removed with an irrigation/aspiration. Provisc was instilled into the capsular bag to inflate the bag.The intraocular lens was placed. The remaining viscoelastic material was removed with irrigation/aspiration. Following this, the incision was found to be watertight. Besivance and Cosopt was instilled into the eye and a protective shield was placed over the eye. The patient was returned to the postoperative recovery in a stable condition.
== END 2020-03-29 09:14 | disposition home or self-care (01) ==
LOC: SC 07:06
PROVIDERS: ATTEND Internal Medicine
DX: H25.813 Combined forms of age-related cataract, bilateral (principal); E11.3591 Type 2 diabetes mellitus with proliferative diabetic retinopathy without macular edema, right eye; H04.123 Dry eye syndrome of bilateral lacrimal glands; I10 Essential (primary) hypertension; E78.00 Pure hypercholesterolemia, unspecified; Z86.73 Personal history of transient ischemic attack (TIA), and cerebral infarction without residual deficits; Z88.5 Allergy status to narcotic agent; Z79.899 Other long term (current) drug therapy; Z79.82 Long term (current) use of aspirin; Z79.84 Long term (current) use of oral hypoglycemic drugs
CPT/HCPCS: 82962; 66984; V2632; J2250; J3490 ×3; J0171; 142

== ENCOUNTER 2020-04-26 08:52 | Day surgery (SDC) | payer MEDICAID ==
[~2020-04-26 08:52] MED LIST changes: +CHONDR SU A NA/HYALUR INTRAOC KIT (SURGICARE) ONE; +EPINEPHRINE INJ/PF 1 MG/1 ML AMPULE ONE; +KETOROLAC TROMETHAMINE 0.45% 4 DROP/0.4 ML DROPERETTE OD PRN; -KETOROLAC TROMETHAMINE 0.45% 4 DROP/0.4 ML DROPERETTE OS PRN; +LIDOCAINE 1%/PHENYLEPHRINE 1.5% 1 ML VIAL ONE
[2020-04-26] MEDS ORDERED: MIDAZOLAM 2 MG/2 ML INJ ONE (09:11)
[2020-04-26] MEDS: TROPICAMIDE 1% OPH SOLN 15 ML OD PRN ×3 (09:42→10:02)
[2020-04-26] MEDS: BESIFLOXACIN HCL 0.6% OPH SUSP 5 ML BOTTLE OD PRN ×4 (09:42→10:32)
[2020-04-26] MEDS: CYCLOPENTOLATE 0.2%/PHENYLEPHRINE 1% OPH SOLN 2 ML OD PRN ×3 (09:42→10:02)
[2020-04-26] MEDS: TETRACAINE HCL 0.5% OPH SOLN 4 ML OD PRN ×3 (09:43→10:13)
[2020-04-26] MEDS: DORZOLAMIDE HCL 2%/TIMOLOL MALEAT 0.5% OPH SOLN 10 ML OD PRN ×2 (10:32)
--- NOTE | 2020-04-27 07:27 | Operative Report ---
Operative Report-[facility] Operative Report: DATE OF SURGERY: 04/26/2020 PREOPERATIVE DIAGNOSIS: Cataract, right eye POSTOPERATIVE DIAGNOSIS: Cataract, right eye OPERATION: Cataract extraction with insertion of an IOL of the right eye. Intraocular Lens Model: [22.0 sn60wf] Patient underwent surgery for difficulty seeing small print like medicine bottles SURGEON: Bam Abdi MD ANESTHESIA: Topical PROCEDURE: After obtaining appropriate consent, the patient's right eye was prepped and draped in a sterile fashion as well as the surgeon in the sterile manner and cataract surgery was started. First a paracentesis blade was used to make a side-port incision. Viscoelastic was used to inflate the anterior chamber. Next a 2.4 mm incision was made with a 2.4 mm blade, clear corneal temporarily. A continuous capsulorrhexis was made using a cystotome and Utrata forceps. Following this hydrodissection was carried out to make the mikey fully loose and mobile and it was rotated. Following this, a divide and conquer technique was used to phacoemulsify the mikey. The remaining cortex was removed with an irrigation/aspiration. Provisc was instilled into the capsular bag to inflate the bag. The intraocular lens was placed. The remaining viscoelastic material was removed with irrigation/aspiration. Following this, the incision was found to be watertight. Besivance and Cosopt was instilled into the eye and a protective shield was placed over the eye. The patient was reurned to the postoperative recovery in a stable condition.
== END 2020-04-26 11:06 ==
LOC: SC 08:52
PROVIDERS: ATTEND Internal Medicine
DX: H25.811 Combined forms of age-related cataract, right eye (principal); Z96.1 Presence of intraocular lens; E11.9 Type 2 diabetes mellitus without complications; I10 Essential (primary) hypertension; E78.00 Pure hypercholesterolemia, unspecified; Z86.73 Personal history of transient ischemic attack (TIA), and cerebral infarction without residual deficits
CPT/HCPCS: 66984; 82962; V2632; J2250; J3490 ×3; J0171